=== PATIENT | female | born 1965 | race Caucasian/White ===

== ENCOUNTER 2018-04-14 14:57 | Emergency (ER) | payer SELFPAY ==
[~2018-04-14] VITALS: Ht 162.5 cm; Wt 81.6 kg
[~2018-04-14 14:57] MED LIST: ALLERGY RELIEF10 MG PO; BACTRIM DS 8001 TA1 PO; CHEWABLE ASPIRI81 MG PO; CLARITIN10 MG PO; EES400 MG PO; HYDROCODONE BIT1 T11 PO; IMITREX PO; IMITREX100 MG PO; LISINOPRIL10 MG PO; MEDROL DOSEPAK4 MG PO; MOTRIN800 MG PO; NAPROSYN500 MG PO; NKHM; OYSTER SHELL W/1 TA1 PO; PROPRANOLOL PO; PROPRANOLOL1 MG/ML PO; PROVENTIL0.09 MG/AC IH; TRAMADOL HCL50 MG PO; ULTRAM50 MG PO; VICODIN 5/500 505 MG PO; VICODIN ES 7501 TAB PO; VITAMIN D50000 I1 PO; ZESTRIL20 MG PO; ZITHROMAX Z PA250 MG PO; ZOFRAN ODT4 MG SL
[2018-04-14 15:49] LABS: BASO % 0.5 % (0.0-1.0); EOS # 0.2 10*3/uL (0.0-0.4); EOS % 2.6 % (1.0-4.0); HEMATOCRIT 42.4 % (37.0-47.0); HEMOGLOBIN 13.9 g/dl (12.0-16.0); LYMPH % 38.5 % (27.0-41.0); MEAN CELL VOLUME 92.8 fl (81.0-99.0); MEAN CORPUSCULAR HGB 30.4 pg (27.0-31.0); MEAN CORPUSCULAR HGB CONC 32.8 g/dl (33.0-37.0); MEAN PLATELET VOLUME 10.4 fl (9.6-12.3); MONO # 0.4 10*3/uL (0.1-1.0); NEUT # 4.1 10*3/uL (2.3-7.9); PLATELET COUNT AUTOMATED 200 10*3/uL (130-400); RED BLOOD COUNT 4.57 10*6/uL (4.10-5.10); RED CELL DISTRI WIDTH 13.3 % (0-14.5); WHITE BLOOD COUNT 7.8 10*3/uL (4.8-10.8)
[2018-04-14 16:04] LABS: ALBUMIN 3.4 gm/dl (3.1-4.5); ALKALINE PHOSPHATASE 72 U/L (45-117); BUN 7 mg/dl (7-24); CHLORIDE 106 mmol/L (98-107); CREATININE 0.65 mg/dL (0.55-1.02); LIPASE 89 U/L (73-393); POTASSIUM 3.5 mmol/L (3.5-5.1); SGOT/AST 12 IU/L (3-35); SGPT/ALT 18 U/L (12-78); SODIUM 143 mmol/L (136-145); TOTAL PROTEIN 6.8 gm/dL (6.4-8.2)
[2018-04-14 17:00] LABS: BILIRUBIN NEGATIVE (NEGATIVE); BLOOD NEGATIVE (NEGATIVE); CLARITY CLEAR (CLEAR); COLOR YELLOW (YELLOW); GLUCOSE NEGATIVE (NEGATIVE); KETONE NEGATIVE (NEGATIVE); LEUKO ESTERASE NEGATIVE (NEGATIVE); NITRITE NEGATIVE (NEGATIVE); PH 5.5 (5.0-9.0); SPECIFIC GRAVITY >= 1.030 (1.005-1.030); UROBILINOGEN 0.2 E.U./dl (0.2-1.0)
[2018-04-14 17:16] LABS: MUCOUS 1+; WBC 0-2 wbc/hpf (0-5)
[2018-04-14] MEDS ORDERED: Zofran4 MG SL (17:57)
== END 2018-04-14 18:09 | disposition home or self-care (01) ==
LOC: ED 14:57
PROVIDERS: Nurse Practitioner Family
DX: A08.4 Viral intestinal infection, unspecified (principal); R10.12 Left upper quadrant pain; F17.200 Nicotine dependence, unspecified, uncomplicated; Z98.51 Tubal ligation status; Z90.49 Acquired absence of other specified parts of digestive tract; Z98.890 Other specified postprocedural states; Z79.899 Other long term (current) drug therapy; Z88.0 Allergy status to penicillin; Z88.6 Allergy status to analgesic agent

== ENCOUNTER 2019-04-11 23:41 | Emergency (ER) | payer SELFPAY ==
[~2019-04-11] VITALS: Ht 162.5 cm; Wt 88.5 kg
[~2019-04-11 23:41] MED LIST changes: +Zofran4 MG SL
[2019-04-12] MEDS ORDERED: VIBRAMYCIN100 MG PO (00:42)
[2019-04-12] MEDS ORDERED: SEPTDS PO (00:42)
== END 2019-04-12 00:56 | disposition home or self-care (01) ==
LOC: ED 23:41
DX: S00.06XA Insect bite (nonvenomous) of scalp, initial encounter (principal); R60.0 Localized edema; G43.909 Migraine, unspecified, not intractable, without status migrainosus; F17.200 Nicotine dependence, unspecified, uncomplicated; Z88.0 Allergy status to penicillin; Z88.6 Allergy status to analgesic agent; Z88.8 Allergy status to other drugs, medicaments and biological substances; W57.XXXA Bitten or stung by nonvenomous insect and other nonvenomous arthropods, initial encounter; Y93.89 Activity, other specified; Y92.89 Other specified places as the place of occurrence of the external cause; Y99.8 Other external cause status

== ENCOUNTER 2019-04-19 16:30 | Emergency (ER) | payer SELFPAY ==
[~2019-04-19] VITALS: Ht 162.5 cm; Wt 83.9 kg
--- NOTE | ~2019-04-19 | EKG ---
[place], [place] ELECTROCARDIOGRAM REPORT NAME: HARESH SILVA UNIT #: [id number] ROOM: DOCTOR: EPIPHANY DRAFT REPORT BIRTHDATE: [birth year] [facility] Test Date: 2019-04-19 Test Time: 17:31:27 Pat Name: HARESH SILVA Department: Room: Gender: F Product Representative: : [id number] Requested By: [place] RANDOLPH DNP Order Number: [id number] Reading MD: Felipe Knight MD Measurements Intervals [place] Rate: 77 P: 46 [place]: 167 QRS: -9 QRSD: 79 T: QT: 405 QTc: 459 Interpretive Statements Sinus rhythm Nonspecific T abnrm, anterolateral leads Electronically Signed On 04-20-2019 11:47:48 PDT by Felipe Knight MD CM:EKGRPT:ELECTROCARDIOGRAM REPORT [id number] [place] AUGUSTIN DRAFT REPORT [place] RANDOLPH DNP
[~2019-04-19 16:30] MED LIST changes: +SEPTDS PO; +VIBRAMYCIN100 MG PO
[2019-04-19 17:35] LABS: BASO % 0.6 % (0.0-1.0); EOS # 0.2 10*3/uL (0.0-0.4); EOS % 2.5 % (1.0-4.0); HEMOGLOBIN 13.6 g/dl (12.0-16.0); LYMPH % 42.4 % (27.0-41.0); MEAN CORPUSCULAR HGB 31.2 pg (27.0-31.0); MEAN CORPUSCULAR HGB CONC 33.2 g/dl (33.0-37.0); MONO # 0.3 10*3/uL (0.1-1.0); MONO % 4.2 % (3.0-9.0); NEUT # 3.6 10*3/uL (2.3-7.9); PLATELET COUNT AUTOMATED 233 10*3/uL (130-400); RED BLOOD COUNT 4.36 10*6/uL (4.10-5.10); RED CELL DISTRI WIDTH 13.2 % (0-14.5); WHITE BLOOD COUNT 7.1 10*3/uL (4.8-10.8)
[2019-04-19 17:46] LABS: ACT PARTIAL THROMBO TIME 26.8 SECONDS (20.0-32.1); INTERNATIONAL NORM RATIO 0.9 (2.0-3.5)
[2019-04-19 17:50] LABS: BILIRUBIN NEGATIVE (NEGATIVE); BLOOD NEGATIVE (NEGATIVE); CLARITY CLEAR (CLEAR); COLOR YELLOW (YELLOW); GLUCOSE NEGATIVE (NEGATIVE); KETONE TRACE (NEGATIVE); LEUKO ESTERASE NEGATIVE (NEGATIVE); NITRITE NEGATIVE (NEGATIVE); SPECIFIC GRAVITY 1.025 (1.005-1.030); UROBILINOGEN 0.2 E.U./dl (0.2-1.0)
[2019-04-19 17:55] LABS: ALBUMIN 3.3 gm/dl (3.1-4.5); ALKALINE PHOSPHATASE 71 U/L (45-117); BUN 12 mg/dl (7-24); CHLORIDE 107 mmol/L (98-107); CREATININE 0.75 mg/dL (0.55-1.02); LIPASE 70 U/L (73-393); POTASSIUM 3.7 mmol/L (3.5-5.1); SGOT/AST 13 IU/L (3-35); SGPT/ALT 16 U/L (12-78); SODIUM 138 mmol/L (136-145); TOTAL PROTEIN 6.3 gm/dL (6.4-8.2)
[2019-04-19 17:56] LABS: TROPONIN I < 0.015 ng/ml (<0.045)
[2019-04-19 18:20] LABS: MUCOUS 1+
[2019-04-19] MEDS ORDERED: CIPRO500 MG PO (18:52)
[2019-04-19] MEDS ORDERED: LASIX20 MG PO (18:52)
[2019-04-19] MEDS ORDERED: FLAGYL500 MG PO (18:52)
[2019-04-19] MEDS ORDERED: K-TAB20 MEQ PO (18:52)
== END 2019-04-19 18:55 | disposition home or self-care (01) ==
LOC: ED 16:30
PROVIDERS: Nurse Practitioner Family
DX: L03.115 Cellulitis of right lower limb (principal); L03.116 Cellulitis of left lower limb; R60.0 Localized edema; I10 Essential (primary) hypertension; M19.90 Unspecified osteoarthritis, unspecified site; F17.200 Nicotine dependence, unspecified, uncomplicated; Z88.0 Allergy status to penicillin; Z88.8 Allergy status to other drugs, medicaments and biological substances; Z88.6 Allergy status to analgesic agent; Z79.2 Long term (current) use of antibiotics; Z90.49 Acquired absence of other specified parts of digestive tract

== ENCOUNTER 2019-06-16 16:19 | Emergency (ER) | payer SELFPAY ==
[~2019-06-16] VITALS: Ht 162.5 cm; Wt 117.9 kg
[~2019-06-16 16:19] MED LIST changes: +CIPRO500 MG PO; +FLAGYL500 MG PO; +K-TAB20 MEQ PO; +LASIX20 MG PO
[2019-06-16] MEDS ORDERED: DOXYCYCLINE100 M3 PO (16:53)
== END 2019-06-16 16:57 | disposition home or self-care (01) ==
LOC: ED 16:19
DX: L02.413 Cutaneous abscess of right upper limb (principal); Z98.51 Tubal ligation status; Z90.49 Acquired absence of other specified parts of digestive tract; Z98.890 Other specified postprocedural states; Z79.899 Other long term (current) drug therapy; Z88.0 Allergy status to penicillin; Z88.6 Allergy status to analgesic agent

== ENCOUNTER 2021-01-11 19:18 | Emergency (ER) | payer SELFPAY ==
[~2021-01-11] VITALS: Ht 162.5 cm; Wt 81.6 kg
[~2021-01-11 19:18] MED LIST changes: +DOXYCYCLINE100 M3 PO
[2021-01-11] MEDS ORDERED: DOXYCYCLINE100 M3 PO (20:02)
== END 2021-01-11 20:03 | disposition home or self-care (01) ==
LOC: ED 19:18
DX: L02.211 Cutaneous abscess of abdominal wall (principal); Z88.0 Allergy status to penicillin; Z79.82 Long term (current) use of aspirin; Z88.8 Allergy status to other drugs, medicaments and biological substances; Z90.49 Acquired absence of other specified parts of digestive tract; Z98.51 Tubal ligation status; Z98.890 Other specified postprocedural states

== ENCOUNTER 2021-04-08 16:48 | Emergency (ER) | payer SELFPAY ==
[~2021-04-08] VITALS: Ht 162.5 cm; Wt 96.6 kg
[2021-04-08 17:46] LABS: BASO % 0.2 % (0.0-1.0); EOS # 0.1 10*3/uL (0.0-0.4); EOS % 1.8 % (1.0-4.0); LYMPH % 44.4 % (27.0-41.0); MEAN CELL VOLUME 91.1 fl (81.0-99.0); MEAN CORPUSCULAR HGB 29.3 pg (27.0-31.0); MEAN CORPUSCULAR HGB CONC 32.2 g/dl (33.0-37.0); MEAN PLATELET VOLUME 10.6 fl (9.6-12.3); MONO # 0.2 10*3/uL (0.1-1.0); MONO % 5.4 % (3.0-9.0); NEUT # 2.1 10*3/uL (2.3-7.9); PLATELET COUNT AUTOMATED 175 10*3/uL (130-400); RED BLOOD COUNT 5.05 10*6/uL (4.10-5.10); RED CELL DISTRI WIDTH 13.1 % (0-14.5); WHITE BLOOD COUNT 4.5 10*3/uL (4.8-10.8)
[2021-04-08 18:03] LABS: ALBUMIN 3.5 gm/dl (3.1-4.5); ALKALINE PHOSPHATASE 85 U/L (45-117); BUN 9 mg/dl (7-24); CHLORIDE 108 mmol/L (98-107); CREATININE 0.55 mg/dL (0.55-1.02); POTASSIUM 3.5 mmol/L (3.5-5.1); SGOT/AST 25 IU/L (3-35); SGPT/ALT 25 U/L (12-78); SODIUM 138 mmol/L (136-145); TOTAL PROTEIN 7.1 gm/dL (6.4-8.2)
[2021-04-08] MEDS ORDERED: DOXYCYCLINE100 M3 PO (18:13)
[2021-04-08] MEDS ORDERED: OFLOXACIN OTIC5 ML OPH (18:13)
== END 2021-04-08 18:16 | disposition left against medical advice (07) ==
LOC: ED 16:48
PROVIDERS: Nurse Practitioner Family
DX: H60.92 Unspecified otitis externa, left ear (principal); L08.9 Local infection of the skin and subcutaneous tissue, unspecified; F17.200 Nicotine dependence, unspecified, uncomplicated; Z88.0 Allergy status to penicillin; Z88.8 Allergy status to other drugs, medicaments and biological substances; Z88.6 Allergy status to analgesic agent; Z79.2 Long term (current) use of antibiotics; Z90.49 Acquired absence of other specified parts of digestive tract; Z98.51 Tubal ligation status; Z98.890 Other specified postprocedural states

== ENCOUNTER 2024-12-11 11:13 | Emergency (ER) | payer OTHER ==
[~2024-12-11] VITALS: Ht 162.5 cm; Wt 90.7 kg
[~2024-12-11 11:13] MED LIST changes: +OFLOXACIN OTIC5 ML OPH
[2024-12-11] MEDS ORDERED: Acetaminophen/Oxycodone 5 MG/325 MG TABLET PO ONE (11:40)
[2024-12-11 11:54] LABS: BASO % 0.4 % (0.0-1.0); EOS # 0.2 10*3/uL (0.0-0.4); EOS % 1.9 % (1.0-4.0); HEMATOCRIT 47.4 % (37.0-47.0); MEAN CELL VOLUME 93.7 fl (81.0-99.0); MEAN CORPUSCULAR HGB 29.8 pg (27.0-31.0); MEAN CORPUSCULAR HGB CONC 31.9 g/dl (33.0-37.0); MEAN PLATELET VOLUME 10.6 fl (9.6-12.3); MONO # 0.6 10*3/uL (0.1-1.0); MONO % 5.8 % (3.0-9.0); NEUT # 5.6 10*3/uL (2.3-7.9); NEUT % 57.5 % (47.0-73.0); PLATELET COUNT AUTOMATED 228 10*3/uL (130-400); RED BLOOD COUNT 5.06 10*6/uL (4.10-5.10); RED CELL DISTRI WIDTH 13.9 % (0-14.5); WHITE BLOOD COUNT 9.8 10*3/uL (4.8-10.8)
[2024-12-11 12:13] LABS: BUN 12 mg/dl (9-23); CHLORIDE 110 mmol/L (98-107); POTASSIUM 4.3 mmol/L (3.4-5.1)
[2024-12-11] MEDS ORDERED: LORazepam 1 MG TAB PO ONE (16:55)
[2024-12-11] MEDS ORDERED: fentaNYL CITRATE 100 MCG/2 ML VIAL IV ONE (16:55)
== END 2024-12-11 20:09 | disposition short-term general hospital (02) ==
LOC: ED 11:13
PROVIDERS: Nurse Practitioner Family
DX: S22.41XA Multiple fractures of ribs, right side, initial encounter for closed fracture (principal); S22.21XA Fracture of manubrium, initial encounter for closed fracture; S22.22XA Fracture of body of sternum, initial encounter for closed fracture; S27.321A Contusion of lung, unilateral, initial encounter; I10 Essential (primary) hypertension; M19.90 Unspecified osteoarthritis, unspecified site; Z88.0 Allergy status to penicillin; Z88.8 Allergy status to other drugs, medicaments and biological substances; Z88.6 Allergy status to analgesic agent; Z90.49 Acquired absence of other specified parts of digestive tract; V47.5XXA Car driver injured in collision with fixed or stationary object in traffic accident, initial encounter; Y93.89 Activity, other specified; Y92.488 Other paved roadways as the place of occurrence of the external cause; Y99.8 Other external cause status